=== PATIENT | female | born 1980 | race Two or more races ===

== ENCOUNTER 2024-12-18 05:37 | Day surgery (SDC) | payer OTHER ==
[2024-12-13 10:23] VITALS: BP 136/86
[2024-12-13 12:39] LABS: HEMOGLOBIN 11.9 g/dL (12.0-15.00); MEAN CELL VOLUME 91.1 fL (80.00-100.00); MEAN CORPUSCULAR HEMOGLOBIN 30.2 pg (27.00-32.0); MEAN CORPUSCULAR HGB CONC 33.1 g/dl (32.0-36.0); PLATELET COUNT 400 K/uL (150-450); RED BLOOD COUNT 3.95 M/uL (4.00-6.00); RED CELL DISTRIBUTION WIDTH 13.8 % (11.5-14.5)
[2024-12-13 13:11] LABS: PARTIAL THROMBOPLASTIN TIME 28.9 SECONDS (22.0-34.0); PROTHROMBIN TIME 10.9 SECONDS (9.0-11.5)
[2024-12-13 13:36] LABS: ALBUMIN 3.9 gm/dL (3.4-5.0); BILIRUBIN TOTAL 0.61 mg/dL (0.3-1.2); CALCIUM 9.9 mg/dL (8.5-10.1); CREATININE SERUM 0.8 mg/dL (0.55-1.02); GFR 77.22; GLOBULINA 3.9 G/DL (2.4-3.5); POTASSIUM 4.58 mEq/L (3.5-5.1); TOTAL PROTEIN 7.8 gm/dL (6.4-8.2)
[~2024-12-18] VITALS: Ht 157.5 cm; Wt 62.1 kg
[~2024-12-18 05:37] MED LIST: COZAAR25 MG PO; DULERA 100 MCG/13 GM; SINGULAIR10 MG; TENORMIN25 MG PO; WELLBUTRIN SR150 MG PO; ZYRTEC10 M3
[2024-12-18] MEDS ORDERED: POVIDONE-IODINE 118 ML BOTT TOP ONE (07:09)
[2024-12-18] MEDS ORDERED: CEFUROXIME500 MG PO (08:25)
[2024-12-18] MEDS ORDERED: ACETAMINOPHEN-1 EAC2 PO (08:26)
[2024-12-18] MEDS ORDERED: KETO10TA2 PO (08:27)
[2024-12-18] MEDS ORDERED: MORPHINE SULFATE 4 MG/ML VIAL IV ONE ×2 (09:10→09:40)
== END 2024-12-18 11:35 | disposition home or self-care (01) ==
LOC: CIR.AMB 05:37
PROVIDERS: ATTEND Obstetrics & Gynecology Maternal & Fetal Medicine
DX: N75.0 Cyst of Bartholin's gland (principal); N75.1 Abscess of Bartholin's gland